=== PATIENT | female | born 1970 | race American Indian/Alaskan Native ===

== ENCOUNTER 2017-01-08 18:45 | Emergency (ER) | payer MEDICARE ==
[2017-01-08 18:56] VITALS: BP 187/106
[2017-01-08 19:17] LABS: Hematocrit 37.2 % (30.3-42.9); Hemoglobin 11.4 gm/dl (10.1-14.3); Mean Corpuscular HGB Conc 31 % (30-34); Mean Corpuscular Volume 83 fl (79-97); Platelet Count 143 K/mm3 (140-440); Red Blood Count 4.49 M/mm3 (3.65-5.03); White Blood Count 9.5 K/mm3 (4.5-11.0)
[2017-01-08 19:18] LABS: Mean Corpuscular Hemoglobin 25 pg (28-32); Red Cell Distribution Width 31.5 % (13.2-15.2)
[2017-01-08 19:32] LABS: INR 0.89 (0.87-1.13)
[2017-01-08 19:33] LABS: Anion Gap 17 mmol/L; Blood Urea Nitrogen 14 mg/dL (7-17); Calcium 8.9 mg/dL (8.4-10.2); Carbon Dioxide 24 mmol/L (22-30); Glucose 126 mg/dL (65-100); Partial Thromboplastin Time 33.7 Sec. (24.2-36.6); Sodium 137 mmol/L (137-145)
--- NOTE | 2017-01-11 19:13 | ED Elopement Review ---
ED Pt Elopement review - Results review Lab results: Laboratory Tests 01/08/17 01/08/17 01/08/17 18:58 18:58 18:58 WBC 9.5 RBC 4.49 Hgb 11.4 Hct 37.2 MCV 83 MCH 25 L MCHC 31 RDW 31.5 H Plt Count 143 PT 11.9 L INR 0.89 APTT 33.7 Sodium 137 Potassium 4.0 Chloride 100.0 Carbon Dioxide 24 Anion Gap 17 BUN 14 Creatinine 0.8 Estimated GFR > 60 BUN/Creatinine Ratio 17.50 Glucose 126 H Calcium 8.9 - Call Back decision Pt Call Back Decision: Pt to F/U with PMD
== END 2017-01-09 00:20 | disposition left against medical advice (07) ==
LOC: ED 18:45
DX: Z45.2 Encounter for adjustment and management of vascular access device (principal); E11.9 Type 2 diabetes mellitus without complications; F32.9 Major depressive disorder, single episode, unspecified; D64.9 Anemia, unspecified; Z87.891 Personal history of nicotine dependence; Z88.0 Allergy status to penicillin; Z53.21 Procedure and treatment not carried out due to patient leaving prior to being seen by health care provider
CPT/HCPCS: 36415; 80048; 85027; 85610; 85730

== ENCOUNTER 2018-04-19 12:14 | Inpatient (IN) | payer MEDICARE ==
[2018-04-19] MEDS ORDERED: ASPIRIN PO ONE (12:36)
[2018-04-19] MEDS ORDERED: NORMODYNE IV ONE ×2 (13:12→15:09)
[2018-04-19 13:13] LABS: Basophils % (Auto) 0.4 % (0.0-1.8); Eosinophils # (Auto) 0.1 K/mm3 (0.0-0.4); Eosinophils % (Auto) 0.9 % (0.0-4.3); Hematocrit 41.2 % (30.3-42.9); Lymphocytes # (Auto) 1.4 K/mm3 (1.2-5.4); Lymphocytes % (Auto) 19.1 % (13.4-35.0); Mean Corpuscular HGB Conc 34 % (30-34); Mean Corpuscular Hemoglobin 31 pg (28-32); Mean Corpuscular Volume 91 fl (79-97); Monocytes # (Auto) 0.6 K/mm3 (0.0-0.8); Monocytes % (Auto) 7.6 % (0.0-7.3); Platelet Count 124 K/mm3 (140-440); Red Blood Count 4.54 M/mm3 (3.65-5.03); Red Cell Distribution Width 15.4 % (13.2-15.2)
--- NOTE | 2018-04-19 13:20 | Emergency Department Report ---
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 She went in to see her type cutter this morning secondary to some skin color changes to her feet and legs and was found to have a blood pressure of 220/112. The patient does have a history of hypertension and is on blood pressure medications but admits to noncompliance. She also has a history of insulin- dependent diabetes, anemia. She says that her blood sugar has been running high in the 200s or 300s. She is a smoker but denies any illicit drug use. The chest pain is a intermittent sharp pain that radiates down the arm causing some air seizures in the hand. She did not take anything for her symptoms prior to presentation. She says that she has never had a stress test before. No recent travel or sick contacts at home. She denies any fever, nausea, vomiting, edema but does have some occasional diaphoresis. - Related Data Home Medications Medication Instructions Recorded Confirmed Last Taken Lisinopril [Zestril] 40 mg PO DAILY 11/07/13 12/22/16 11/20/13 glipiZIDE [glipiZIDE XL] 10 mg PO BID 11/07/13 12/22/16 11/20/13 Hydrochlorothiazide [HCTZ] 25 mg PO QDAY 11/22/13 12/22/16 11/20/13 Spironolactone [Aldactone] 50 mg PO DAILY 11/22/13 12/22/16 11/21/13 Insulin NPH Hum/Reg Insulin Hm 16 units SUB-Q DAILY 03/27/16 12/22/16 Unknown [HumuLIN 70-30 Vial] Previous Rx's Medication Instructions Recorded Last Taken Type Detemir (Nf) [Levemir (Nf)] 16 units SUB-Q QHS #30 units 12/27/16 Unknown Rx Ferrous Sulfate [Feosol 325 MG tab] 325 mg PO BID #60 tablet 12/27/16 Unknown Rx Levofloxacin [Levaquin TAB] 750 mg PO Q24HR #10 tablet 12/27/16 Unknown Rx Metoprolol [Lopressor TAB] 100 mg PO BID #60 tablet 12/27/16 Unknown Rx Pantoprazole [Protonix TAB] 40 mg PO DAILY #30 tablet 12/27/16 Unknown Rx Pregabalin [Lyrica] 75 mg PO BID #60 capsule 12/27/16 Unknown Rx amLODIPine [Norvasc] 5 mg PO QDAY #30 tablet 12/27/16 Unknown Rx cloNIDine [Catapres] 0.1 mg PO TID #60 tablet 12/27/16 Unknown Rx Allergies Allergy/AdvReac Type Severity Reaction Status Date / Time No Known Allergies Allergy Verified 04/19/18 13:56 Heart Score - HEART Score History: Moderately suspicious EKG: Non-specific Age: 45-65 Risk factors: > 3 risk factors or hx of atherosclerotic disease Troponin: < normal limit HEART Score: 5 - Critical Actions Critical Actions: 4-6 pts:12-16.6% risk of adverse cardiac event. Should be admitted ED Review of Systems ROS: Stated complaint: HBP Other details as noted in HPI Comment: All other systems reviewed and negative Constitutional: diaphoresis. denies: chills, fever Eyes: denies: eye pain, eye discharge, vision change ENT: denies: ear pain, throat pain Respiratory: denies: cough, shortness of breath, wheezing Cardiovascular: chest pain Gastrointestinal: denies: abdominal pain, nausea, diarrhea Genitourinary: denies: urgency, dysuria, discharge Musculoskeletal: myalgia. denies: back pain Skin: denies: lesions, pruritus Neurological: denies: headache, weakness, paresthesias ED Past Medical Hx - Past Medical History Previous Medical History?: Yes Hx Hypertension: Yes (noncomplient with meds) Hx Congestive Heart Failure: No Hx Diabetes: Yes Hx Deep Vein Thrombosis: No Hx Psychiatric Treatment: Yes (depression, axiety) Hx Asthma: No Hx COPD: No Hx HIV: No Additional medical history: Iron deficiency anemia, osteomyelitis left foot - Surgical History Hx Pacemaker: No Hx Internal Defibrillator: No Additional Surgical History: , left foot surgery - Social History Smoking Status: Current Every Day Smoker Substance Use Type: None - Medications Home Medications: Home Medications Medication Instructions Recorded Confirmed Last Taken Type Lisinopril [Zestril] 40 mg PO DAILY 11/07/13 12/22/16 11/20/13 History glipiZIDE [glipiZIDE XL] 10 mg PO BID 11/07/13 12/22/16 11/20/13 History Hydrochlorothiazide [HCTZ] 25 mg PO QDAY 11/22/13 12/22/16 11/20/13 History Spironolactone [Aldactone] 50 mg PO DAILY 11/22/13 12/22/16 11/21/13 History Insulin NPH Hum/Reg Insulin Hm 16 units SUB-Q DAILY 03/27/16 12/22/16 Unknown History [HumuLIN 70-30 Vial] Detemir (Nf) [Levemir (Nf)] 16 units SUB-Q QHS #30 units 12/27/16 Unknown Rx Ferrous Sulfate [Feosol 325 MG tab] 325 mg PO BID #60 tablet 12/27/16 Unknown Rx Levofloxacin [Levaquin TAB] 750 mg PO Q24HR #10 tablet 12/27/16 Unknown Rx Metoprolol [Lopressor TAB] 100 mg PO BID #60 tablet 12/27/16 Unknown Rx Pantoprazole [Protonix TAB] 40 mg PO DAILY #30 tablet 12/27/16 Unknown Rx Pregabalin [Lyrica] 75 mg PO BID #60 capsule 12/27/16 Unknown Rx amLODIPine [Norvasc] 5 mg PO QDAY #30 tablet 12/27/16 Unknown Rx cloNIDine [Catapres] 0.1 mg PO TID #60 tablet 12/27/16 Unknown Rx ED Physical Exam - General Limitations: No Limitations - Other Other exam information: GENERAL: The patient is well-developed well-nourished. HENT: Normocephalic. Atraumatic. Patient has moist mucous membranes. EYES: Extraocular motions are intact. Pupils equal reactive to light bilaterally. NECK: Supple. Trachea is midline. CHEST/LUNGS: Clear to auscultation. There is no respiratory distress noted. HEART/CARDIOVASCULAR: Regular. There is no tachycardia. There is no murmur. ABDOMEN: Abdomen is soft, nontender. Patient has normal bowel sounds. There is no abdominal distention. SKIN: Skin is warm and dry. NEURO: The patient is awake, alert, and oriented. The patient is cooperative. The patient has no focal neurologic deficits. The patient has normal speech. MUSCULOSKELETAL: There is no tenderness or deformity. There is no limitation range of motion. There is no evidence of acute injury. ED Course Vital Signs 04/19/18 04/19/18 04/19/18 12:25 12:28 12:30 Temperature 98.4 F Pulse Rate 85 84 95 H Respiratory 16 16 17 Rate Blood Pressure 208/124 208/124 Blood Pressure [Right] O2 Sat by Pulse 99 99 Oximetry 04/19/18 04/19/18 04/19/18 13:39 13:45 13:51 Temperature Pulse Rate 90 85 85 Respiratory 20 12 Rate Blood Pressure 208/130 213/130 208/124 Blood Pressure [Right] O2 Sat by Pulse 100 Oximetry 04/19/18 04/19/18 04/19/18 14:00 14:16 14:20 Temperature Pulse Rate 85 89 88 Respiratory 14 13 Rate Blood Pressure 201/124 224/120 224/120 Blood Pressure [Right] O2 Sat by Pulse 100 99 Oximetry 04/19/18 04/19/18 04/19/18 14:30 14:46 15:00 Temperature Pulse Rate 93 H 96 H 93 H Respiratory 18 17 17 Rate Blood Pressure 224/120 224/120 205/100 Blood Pressure [Right] O2 Sat by Pulse 100 99 99 Oximetry 04/19/18 04/19/18 04/19/18 15:07 15:17 15:45 Temperature Pulse Rate 93 H 92 H Respiratory Rate Blood Pressure 205/100 205/100 Blood Pressure 205/100 [Right] O2 Sat by Pulse 100 Oximetry 04/19/18 04/19/18 04/19/18 16:00 16:16 16:30 Temperature Pulse Rate 97 H 97 H 97 H Respiratory 16 9 L 11 L Rate Blood Pressure 188/100 205/100 205/100 Blood Pressure [Right] O2 Sat by Pulse 98 98 99 Oximetry 04/19/18 04/19/18 04/19/18 16:46 17:00 17:16 Temperature Pulse Rate 98 H 96 H 96 H Respiratory 18 17 13 Rate Blood Pressure 205/100 166/93 166/93 Blood Pressure [Right] O2 Sat by Pulse 98 97 97 Oximetry 04/19/18 04/19/18 17:31 17:45 Temperature Pulse Rate 98 H 98 H Respiratory 18 16 Rate Blood Pressure 166/93 Blood Pressure [Right] O2 Sat by Pulse 99 99 Oximetry BUCK score - Buck Score Age > 65: (0) No Aspirin use within the Past 7 Days: (0) No 3 or more CAD Risk Factors: (0) No 2 or more Angina events in past 24 hrs: (1) Yes Known CAD with more than 50% Stenosis: (0) No Elevated Cardiac Markers: (0) No ST Deviation Greater than 0.5mm: (0) No BUCK Score: 1 ED Medical Decision Making - Lab Data Result diagrams: 04/19/18 12:49 04/19/18 12:49 - EKG Data -: EKG Interpreted by Me EKG shows normal: sinus rhythm, axis (left axis deviation), intervals, QRS complexes (LVH), ST-T waves Rate: normal - EKG Data When compared to previous EKG there are: previous EKG unavailable Interpretation: LVH - Radiology Data Radiology results: report reviewed, image reviewed interpreted by me: Chest x-ray does not show any acute process. There are no pleural effusions, obvious pneumonia and there is no pneumothorax. EXAM: CT ANGIO CHEST HISTORY: CP, elevated dimer TECHNIQUE: CT chest CT angiogram with reconstructions PRIORS: None. FINDINGS: There is no evidence of filling defect within the central pulmonary vasculature to suggest the presence of acute pulmonary embolus. No evidence of mediastinal pathologic lymph node enlargement Heart and great vessels are unremarkable. The aorta is normal in caliber. No focal pulmonary infiltrate identified. No pleural fluid collection seen. No acute pulmonary abnormality noted. Visualized portion of the upper abdomen demonstrates no acute change. IMPRESSION: Negative. No CT evidence of acute pulmonary embolus Transcribed By: KYM Dictated By: SAMY UPTON MD Electronically Authenticated By: SAMY UPTON MD Signed Date/Time: 04/19/18 4979 - Medical Decision Making This patient presents with very elevated blood pressure and a 4 day history of some chest pain. Patient is been noncompliant with her blood pressure medications and presents with a blood pressure of about 220 systolic. Labs within mostly unremarkable including negative troponins 2 thus far but she did have a slightly elevated and equivocal d-dimer. CT angiography of the chest was done that does not show any signs of dissection or pulmonary embolus. Blood pressure came down to a more reasonable level with multiple antihypertensive medications. Patient will be admitted to the hospital for further evaluation and treatment was subsequently by the hospitalist, Dr Light. - Differential Diagnosis [place], PE, Pneumonia, CHF, Dissection Critical Care Time: No Critical care attestation.: If time is entered above; I have spent that time in minutes in the direct care of this critically ill patient, excluding procedure time. ED Disposition Clinical Impression: Hypertensive urgency, Acute chest pain, Medical non-compliance, Tobacco abuse disorder Disposition: OP ADMIT IP TO THIS HOSP Is pt being admited?: Yes Condition: Fair Instructions: Chest Pain (ED) Time of Disposition: 18:29
[2018-04-19 13:31] LABS: BUN/Creatinine Ratio 18; Blood Urea Nitrogen 14 mg/dL (7-17); Calcium 9.2 mg/dL (8.4-10.2); Hemolysis Index 1
--- NOTE | 2018-04-19 14:14 | XRay Report ---
AP CHEST : 04/19/18 12:14:00 CLINICAL: Chest pain. COMPARISON:01/01/17 FINDINGS: Normal heart and pulmonary vessels. The lungs are normally expanded and clear. The bones and soft tissues are unremarkable. IMPRESSION: Normal chest.
[2018-04-19] MEDS ORDERED: MORPHINE IV ONE (14:17)
[2018-04-19] MEDS ORDERED: ZOFRAN IV ONE (14:17)
[2018-04-19] MEDS ORDERED: APRESOLINE IV ONE (14:17)
--- NOTE | 2018-04-19 17:04 | Cat Scan Report ---
FINAL REPORT EXAM: CT ANGIO CHEST HISTORY: CP, elevated dimer TECHNIQUE: CT chest CT angiogram with reconstructions PRIORS: None. FINDINGS: There is no evidence of filling defect within the central pulmonary vasculature to suggest the presence of acute pulmonary embolus. No evidence of mediastinal pathologic lymph node enlargement Heart and great vessels are unremarkable. The aorta is normal in caliber. No focal pulmonary infiltrate identified. No pleural fluid collection seen. No acute pulmonary abnormality noted. Visualized portion of the upper abdomen demonstrates no acute change. IMPRESSION: Negative. No CT evidence of acute pulmonary embolus
--- NOTE | 2018-04-19 17:39 | History and Physical Report ---
History of Present Illness Chief complaint: My chest hurts History of present illness: 47 YO Female with DM, HTN, Depression, Anxiety, Nicotine Dependence, Medication Noncompliance presents to ED for evaluation. Pt states that she has experienced pain in her chest over the past 4 days with worsening symptoms over the past 1 day. Pain is 6/10, intermittent, sharp, radiates to the left arm, not worsened with exertion, not relieved with rest. Pt states that she was seen by her doctor and was found to have a blood pressure of 220/120. Pt instructed to seek further care at [facility]. Pt seen and evaluated in ED and found to have symptoms consistent with ACS as well as CHF. Pt admitted to telemetry. Pt denies fever, chills, palpitations, NVD, Syncope, prolonged travel/immobility, unilateral leg swelling, calf pain, productive cough, or recent ill contacts. Cardiology consulted in ED. Past History Past Medical History: hypertension, other (depression,anxiety) Past Surgical History: , Other (left Foot surgery) Social history: single, smoking. denies: alcohol abuse, prescription drug abuse Family history: diabetes, hypertension Medications and Allergies Allergies Allergy/AdvReac Type Severity Reaction Status Date / Time No Known Allergies Allergy Verified 04/19/18 13:56 Home Medications Medication Instructions Recorded Confirmed Last Taken Type Lisinopril [Zestril] 40 mg PO DAILY 11/07/13 12/22/16 11/20/13 History glipiZIDE [glipiZIDE XL] 10 mg PO BID 11/07/13 12/22/16 11/20/13 History Hydrochlorothiazide [HCTZ] 25 mg PO QDAY 11/22/13 12/22/16 11/20/13 History Spironolactone [Aldactone] 50 mg PO DAILY 11/22/13 12/22/16 11/21/13 History Insulin NPH Hum/Reg Insulin Hm 16 units SUB-Q DAILY 03/27/16 12/22/16 Unknown History [HumuLIN 70-30 Vial] Detemir (Nf) [Levemir (Nf)] 16 units SUB-Q QHS #30 units 12/27/16 Unknown Rx Ferrous Sulfate [Feosol 325 MG tab] 325 mg PO BID #60 tablet 12/27/16 Unknown Rx Levofloxacin [Levaquin TAB] 750 mg PO Q24HR #10 tablet 12/27/16 Unknown Rx Metoprolol [Lopressor TAB] 100 mg PO BID #60 tablet 12/27/16 Unknown Rx Pantoprazole [Protonix TAB] 40 mg PO DAILY #30 tablet 12/27/16 Unknown Rx Pregabalin [Lyrica] 75 mg PO BID #60 capsule 12/27/16 Unknown Rx amLODIPine [Norvasc] 5 mg PO QDAY #30 tablet 12/27/16 Unknown Rx cloNIDine [Catapres] 0.1 mg PO TID #60 tablet 12/27/16 Unknown Rx Review of Systems Constitutional: no weight loss, no weight gain, no fever, no chills Ears, nose, mouth and throat: no ear pain, no ear discharge, no tinnitis, no decreased hearing, no nose pain, no nasal congestion Breasts: no change in shape, no swelling, no mass Cardiovascular: chest pain, no orthopnea, no palpitations, no syncope, no lightheadedness Respiratory: no cough, no cough with sputum, no excessive sputum Gastrointestinal: no abdominal pain, no nausea, no vomiting, no diarrhea, no constipation Genitourinary Female: no pelvic pain, no flank pain, no menorrhagia, no dysuria , no urinary frequency, no urgency, no stress incontinence Rectal: no pain, no incontinence, no bleeding Integumentary: no rash, no pruritis, no redness, no sores, no wounds, no jaundice Neurological: no transient paralysis, no paralysis, no weakness, no parathesias , no numbness, no tingling Psychiatric: no anxiety, no memory loss, no change in sleep habits, no sleep disturbances, no insomnia, no hypersomnia Endocrine: no cold intolerance, no heat intolerance, no excessive thirst, no polydipsia, no polyuria, no nocturia Hematologic/Lymphatic: no easy bruising, no easy bleeding, no lymphadenopathy, no lymphedema Allergic/Immunologic: no urticaria, no allergic rhinitis, no wheezing, no persistent infections, no anaphylaxis Exam - Constitutional Vitals: Temp Pulse Resp BP Pulse Ox 98.4 F 96 H 17 166/93 97 04/19/18 12:25 04/19/18 17:00 04/19/18 17:00 04/19/18 17:00 04/19/18 17:00 General appearance: Present: mild distress, cachectic - EENT Eyes: Present: PERRL ENT: hearing intact, clear oral mucosa - Neck Neck: Present: supple, normal ROM - Respiratory Respiratory effort: normal Respiratory: bilateral: CTA - Cardiovascular Heart Sounds: Present: S1 & S2. Absent: rub, click - Extremities Extremities: pulses symmetrical, No edema Peripheral Pulses: within normal limits - Abdominal General gastrointestinal: Present: soft, non-tender, non-distended, normal bowel sounds Female genitourinary: Present: normal - Integumentary Integumentary: Present: clear, warm, dry - Musculoskeletal Musculoskeletal: gait normal, strength equal bilaterally - Psychiatric Psychiatric: appropriate mood/affect, intact judgment & insight - Neurologic Neurologic: CNII-XII intact, moves all extremities Results - Labs CBC & Chem 7: 04/19/18 12:49 04/19/18 12:49 Labs: Abnormal lab results 04/19/18 04/19/18 04/19/18 Range/Units 12:49 12:49 13:20 RDW 15.4 H (13.2-15.2) % Plt Count 124 L (140-440) K/mm3 [place] % (Auto) 7.6 H (0.0-7.3) % Seg Neutrophils % 72.0 H (40.0-70.0) % D-Dimer 568.39 H (0-234) ng/mlDDU Glucose 261 H (65-100) mg/dL Assessment and Plan - Patient Problems (1) ACS (acute coronary syndrome) Current Visit: Yes Status: Acute Plan to address problem: Admit to telemetry, serial cardiac enzymes, stress test, d dimer, morphine, supplemental oxygen, nitro, aspirin, cardiology consulted in ED (2) CHF (congestive heart failure) Current Visit: Yes Status: Acute Qualifiers: Heart failure type: diastolic Heart failure chronicity: acute Qualified Code(s): I50.31 - Acute diastolic (congestive) heart failure Plan to address problem: Admit to telemetry, echo, strict I/O, monitor uop q shift, Cardiology consulted in ED, BNP, Chest x ray, d dimer, daily weight, (3) Severe malnutrition Current Visit: Yes Status: Acute Plan to address problem: Encourage increased protein intake. (4) Hypertensive urgency, malignant Current Visit: Yes Status: Acute Plan to address problem: monitor bp q shift, continue medical management,IV hydralazine prn, (5) Diabetes mellitus Current Visit: No Status: Acute Plan to address problem: ADA diet, insulin, accu check (6) DVT prophylaxis Current Visit: No Status: Acute Plan to address problem: SCD to BLE while in bed.
[2018-04-19] MEDS ORDERED: NITROSTAT SL PRN (17:41)
[2018-04-19] MEDS ORDERED: MORPHINE IV PRN (17:41)
[2018-04-19] MEDS ORDERED: PROVENTIL IH PRN (17:41)
[2018-04-19] MEDS ORDERED: SODIUM CHLORIDE FLUSH SYRINGE 10 ML IV PRN ×2 (17:41)
[2018-04-19] MEDS ORDERED: TYLENOL PO PRN (17:41)
[2018-04-19] MEDS ORDERED: ZOFRAN IV PRN (17:41)
[2018-04-19] MEDS ORDERED: APRESOLINE IV PRN (17:46)
[2018-04-19] MEDS ORDERED: BABY ASPIRIN PO STA (17:49)
[2018-04-19 19:02] LABS: Chol/HDL Ratio 3.61 %
[2018-04-19] MEDS: FEOSOL PO SCH ×2 (20:44→21:25)
[2018-04-19] MEDS: LOPRESSOR PO SCH ×2 (20:44→21:25)
[2018-04-19] MEDS: LYRICA PO SCH ×2 (20:45→21:25)
[2018-04-19] MEDS: CATAPRES PO SCH (20:45)
[2018-04-19] MEDS: SODIUM CHLORIDE FLUSH SYRINGE 10 ML IV SCH ×2 (20:46→21:25)
[2018-04-19] MEDS ORDERED: INSULIN DETEMIR 16 UNIT SUB-Q SCH (22:00)
[2018-04-19] MEDS ORDERED: PEPCID PO SCH (22:00)
[2018-04-19] MEDS: LANTUS SUB-Q SCH (22:59)
[2018-04-20] MEDS ORDERED: APRESOLINE IV PRN (04:47)
[2018-04-20] MEDS ORDERED: APRESOLINE IV SCH (06:00)
[2018-04-20] MEDS: CATAPRES PO SCH (08:00)
[2018-04-20] MEDS ORDERED: LEXISCAN IV ONE ×2 (08:17→08:35)
[2018-04-20] MEDS: FEOSOL PO SCH ×2 (09:51→22:20)
[2018-04-20] MEDS: ALDACTONE PO SCH (09:51)
[2018-04-20] MEDS: LOPRESSOR PO SCH ×2 (09:52→22:20)
[2018-04-20] MEDS: SODIUM CHLORIDE FLUSH SYRINGE 10 ML IV SCH ×2 (09:52→22:22)
[2018-04-20] MEDS: LYRICA PO SCH ×2 (09:52→22:20)
[2018-04-20] MEDS: PROTONIX PO SCH (09:52)
[2018-04-20] MEDS: ZESTRIL PO SCH (09:52)
[2018-04-20] MEDS ORDERED: HCTZ PO SCH (10:00)
[2018-04-20] MEDS ORDERED: NORVASC PO SCH (10:00)
--- NOTE | 2018-04-20 10:36 | Consultation ---
History of Present Illness Consult date: 04/20/18 Requesting physician: MARTÍN VICKERS Consult reason: chest pain History of present illness: Patient is a 47 YO Female who presented to the hospital with chest pain. She has history of DM, HTN, Depression, Anxiety, Nicotine Dependence. She has been very noncompliant with her medications.patient presented with atypical chest pain all over her chest but no particular aggravating or relieving factorsor shortness of breath or diaphoresis. Pt states that she was seen by her primary care doctor and was found to have a blood pressure of 220/120. Pt instructed to seek further care at [facility]. She has since done well with no chest pain and improvement in her blood pressure. Pt admitted to telemetry. Pt denies fever, chills, palpitations, NVD, Syncope, prolonged travel/immobility, unilateral leg swelling, calf pain, productive cough, or recent ill contacts. Past History Past Medical History: hypertension, other (depression,anxiety) Past Surgical History: , Other (left Foot surgery) Social history: single, smoking. denies: alcohol abuse, prescription drug abuse Family history: diabetes, hypertension Medications and Allergies Allergies Allergy/AdvReac Type Severity Reaction Status Date / Time No Known Allergies Allergy Verified 04/19/18 13:56 Home Medications Medication Instructions Recorded Confirmed Last Taken Type Lisinopril [Zestril] 40 mg PO DAILY 11/07/13 12/22/16 11/20/13 History glipiZIDE [glipiZIDE XL] 10 mg PO BID 11/07/13 12/22/16 11/20/13 History Hydrochlorothiazide [HCTZ] 25 mg PO QDAY 11/22/13 12/22/16 11/20/13 History Spironolactone [Aldactone] 50 mg PO DAILY 11/22/13 12/22/16 11/21/13 History Insulin NPH Hum/Reg Insulin Hm 16 units SUB-Q DAILY 03/27/16 12/22/16 Unknown History [HumuLIN 70-30 Vial] Detemir (Nf) [Levemir (Nf)] 16 units SUB-Q QHS #30 units 12/27/16 Unknown Rx Ferrous Sulfate [Feosol 325 MG tab] 325 mg PO BID #60 tablet 12/27/16 Unknown Rx Levofloxacin [Levaquin TAB] 750 mg PO Q24HR #10 tablet 12/27/16 Unknown Rx Metoprolol [Lopressor TAB] 100 mg PO BID #60 tablet 12/27/16 Unknown Rx Pantoprazole [Protonix TAB] 40 mg PO DAILY #30 tablet 12/27/16 Unknown Rx Pregabalin [Lyrica] 75 mg PO BID #60 capsule 12/27/16 Unknown Rx amLODIPine [Norvasc] 5 mg PO QDAY #30 tablet 12/27/16 Unknown Rx cloNIDine [Catapres] 0.1 mg PO TID #60 tablet 12/27/16 Unknown Rx Active Meds: Active Medications Acetaminophen (Tylenol) 650 mg PO Q4H PRN PRN Reason: Pain MILD(1-3)/Fever >100.5/STALEY Albuterol (Proventil) 2.5 mg IH Q4HRT PRN PRN Reason: Shortness Of Breath Amlodipine Besylate (Norvasc) 5 mg PO QDAY [facility] Last Admin: 04/20/18 09:52 Dose: Not Given Ferrous Sulfate (Feosol) 325 mg PO BID [facility] Last Admin: 04/20/18 09:51 Dose: Not Given Hydralazine HCl (Apresoline) 20 mg IV Q4HR PRN PRN Reason: Blood Pressure Last Admin: 04/20/18 04:54 Dose: 20 mg Hydrochlorothiazide (Hctz) 25 mg PO QDAY [facility] Last Admin: 04/20/18 09:51 Dose: Not Given Insulin Glargine (Lantus) 16 units SUB-Q QHS [facility] Last Admin: 04/19/18 22:59 Dose: 16 units Insulin Human Isoph/Insulin Regular (Humulin 70/30) 16 unit SUB-Q DAILY [facility] Last Admin: 04/20/18 09:51 Dose: Not Given Lisinopril (Zestril) 40 mg PO DAILY [facility] Last Admin: 04/20/18 09:52 Dose: Not Given Metoprolol Tartrate (Lopressor) 100 mg PO BID [facility] Last Admin: 04/20/18 09:52 Dose: Not Given Morphine Sulfate (Morphine) 2 mg IV Q4H PRN PRN Reason: Pain, Moderate (4-6) Last Admin: 04/20/18 04:52 Dose: 2 mg Nitroglycerin (Nitrostat) 0.4 mg SL Q5M PRN PRN Reason: Chest Pain Ondansetron HCl (Zofran) 4 mg IV Q8H PRN PRN Reason: Nausea And Vomiting Last Admin: 04/20/18 04:53 Dose: 4 mg Pantoprazole Sodium (Protonix) 40 mg PO DAILY [facility] Last Admin: 04/20/18 09:52 Dose: Not Given Pregabalin (Lyrica) 75 mg PO BID [facility] Last Admin: 04/20/18 09:52 Dose: Not Given Sodium Chloride (Sodium Chloride Flush Syringe 10 Ml) 10 ml IV BID [facility] Last Admin: 04/20/18 09:52 Dose: Not Given Sodium Chloride (Sodium Chloride Flush Syringe 10 Ml) 10 ml IV PRN PRN PRN Reason: LINE FLUSH Spironolactone (Aldactone) 50 mg PO DAILY [facility] Last Admin: 04/20/18 09:51 Dose: Not Given Review of Systems All systems: negative (as mentioned in the H&P) Physical Examination Vital Signs Temp Pulse Resp BP Pulse Ox 98.4 F 85 16 208/124 99 04/19/18 12:25 04/19/18 12:25 04/19/18 12:25 04/19/18 12:25 04/19/18 12:25 Narrative exam: Physical examination Vitals reviewed GEN: No acute distress noted HEENT: Carotids 2+ NECK: Supple CVS: S1 and S2 heard no significant murmur or gallop noted LUNGS/CHEST: Normal auscultation ABD: Soft nontender Extremities: No edema noted normal color NEURO: Alert moves all all 4 extremities PSY: Stable Results 04/19/18 12:49 04/19/18 12:49 Lipids 04/19/18 Range/Units 18:18 Triglycerides 151 H (2-149) mg/dL Cholesterol 177 (50-199) mg/dL HDL Cholesterol 49 (40-59) mg/dL Cholesterol/HDL Ratio 3.61 % CBC 04/19/18 Range/Units 12:49 WBC 7.3 (4.5-11.0) K/mm3 RBC 4.54 (3.65-5.03) M/mm3 Hgb 14.0 (10.1-14.3) gm/dl Hct 41.2 (30.3-42.9) % Plt Count 124 L (140-440) K/mm3 Lymph # 1.4 (1.2-5.4) K/mm3 [place] # 0.6 (0.0-0.8) K/mm3 Eos # 0.1 (0.0-0.4) K/mm3 Baso # 0.0 (0.0-0.1) K/mm3 Comprehensive Metabolic Panel 04/19/18 Range/Units 12:49 Sodium 139 (137-145) mmol/L Potassium 3.9 (3.6-5.0) mmol/L Chloride 101.3 (98-107) mmol/L Carbon Dioxide 27 (22-30) mmol/L BUN 14 (7-17) mg/dL Creatinine 0.8 (0.7-1.2) mg/dL Glucose 261 H (65-100) mg/dL Calcium 9.2 (8.4-10.2) mg/dL EKG interpretations - Telemetry EKG Rhythm: Sinus Rhythm (inferolateral ST changes likely suggestive of LVH) Assessment and Plan 1. Chest pain atypical likely related to uncontrolled hypertension 2. Uncontrolled hypertension improving 3. Noncompliance 4. Elevated d-dimer with negative CT of the chest 5. Tobacco abuse Plan 1. Agree with stress test 2. DC clonidine to improve compliance. Increase amlodipine. Change hydrochlorothiazide to chlorthalidone. 3. 2-D echo 4. The thank you for involving us in the care of this patient
--- NOTE | 2018-04-20 13:11 | Treadmill Report ---
NUCLEAR PERFUSION REPORT REQUESTING PHYSICIAN: Dr. Freeman Light. FINDINGS: 1. Homogeneous uptake of tracer noted in the rest and stress images. 2. Comparison of the rest and stress images revealed no fixed or reversible defect suggestive of ischemia or infarct. Gated analysis reveals normal wall motion. LVEF is 56%. IMPRESSION: Normal myocardial perfusion scan. JOB# [id number] RR/NTS
[2018-04-20] MEDS: NORVASC PO SCH (13:29)
[2018-04-20] MEDS: THALITONE PO SCH (14:45)
--- NOTE | 2018-04-20 15:30 | Progress Note ---
Assessment and Plan - ACS (acute coronary syndrome) serial cardiac enzymes x 2 wer neagtive, For stress test, Continue with morphine, supplemental oxygen, nitro, aspirin, - CHF (congestive heart failure) Acute diastolic (congestive) heart failure Obtian echo, strict I/O, monitor uop q shift, BNP - pending, Chest x ray - nl daily weight, - Severe malnutrition Encourage increased protein intake. - Hypertensive urgency, malignant monitor bp q shift, continue medical management, IV hydralazine prn, - Diabetes mellitus A1c 11% ADA diet, insulin, accu check - DVT prophylaxis SCD to BLE while in bed. Subjective Date of service: 04/20/18 Principal diagnosis: Chest pain Interval history: pt seen and exmained. No more chest pain. Objective - Constitutional Vitals: Vital Signs - 12hr 04/20/18 04/20/18 04/20/18 03:35 04:54 05:27 Temperature 98.6 F Pulse Rate 90 94 H Respiratory 18 Rate Blood Pressure 188/111 Blood Pressure 188/111 [Right] O2 Sat by Pulse 97 Oximetry 04/20/18 04/20/18 04/20/18 06:07 06:24 08:07 Temperature Pulse Rate 94 H 91 H Respiratory Rate Blood Pressure 168/94 Blood Pressure 157/86 [Right] O2 Sat by Pulse 99 Oximetry 04/20/18 04/20/18 04/20/18 08:23 08:24 08:25 Temperature Pulse Rate 107 H 89 114 H Respiratory Rate Blood Pressure 135/73 128/78 142/78 Blood Pressure [Right] O2 Sat by Pulse Oximetry 04/20/18 04/20/18 04/20/18 08:26 08:27 13:29 Temperature Pulse Rate 95 H 118 H Respiratory Rate Blood Pressure 137/94 173/99 158/97 Blood Pressure [Right] O2 Sat by Pulse Oximetry 04/20/18 15:11 Temperature Pulse Rate Respiratory Rate Blood Pressure Blood Pressure [Right] O2 Sat by Pulse 100 Oximetry General appearance: Present: no acute distress, well-nourished - EENT Eyes: PERRL, EOM intact ENT: hearing intact, clear oral mucosa Ears: bilateral: normal - Neck Neck: supple, normal ROM - Respiratory Respiratory effort: normal Respiratory: bilateral: CTA - Breasts Breasts: deferred - Cardiovascular Rhythm: regular Heart Sounds: Present: S1 & S2. Absent: gallop, rub Extremities: pulses intact, No edema, normal color, Full ROM - Gastrointestinal General gastrointestinal: Present: soft, non-tender, non-distended, normal bowel sounds - Genitourinary Female genitourinary: deferred - Integumentary Integumentary: clear, warm, dry - Musculoskeletal Musculoskeletal: 1, strength equal bilaterally - Neurologic Neurologic: moves all extremities - Psychiatric Psychiatric: memory intact, appropriate mood/affect, intact judgment & insight - Labs CBC & Chem 7: 04/19/18 12:49 04/19/18 12:49 Labs: Abnormal lab results 04/19/18 04/19/18 04/19/18 Range/Units 18:01 18:18 20:43 POC Glucose 424 H (70-105) Hemoglobin A1c 11.7 H (4-6) % Triglycerides 151 H (2-149) mg/dL 04/20/18 Range/Units 13:20 POC Glucose 275 H (70-105) Hemoglobin A1c (4-6) % Triglycerides (2-149) mg/dL
[2018-04-20] MEDS: HumaLOG SUB-Q SCH ×2 (18:06→22:22)
[2018-04-20] MEDS: LANTUS SUB-Q SCH (22:20)
[2018-04-21 08:59] LABS: Basophils % (Auto) 0.4 % (0.0-1.8); Eosinophils # (Auto) 0.1 K/mm3 (0.0-0.4); Eosinophils % (Auto) 1.3 % (0.0-4.3); Hematocrit 42.4 % (30.3-42.9); Hemoglobin 14.5 gm/dl (10.1-14.3); Lymphocytes # (Auto) 1.7 K/mm3 (1.2-5.4); Lymphocytes % (Auto) 24.1 % (13.4-35.0); Mean Corpuscular HGB Conc 34 % (30-34); Mean Corpuscular Hemoglobin 31 pg (28-32); Mean Corpuscular Volume 90 fl (79-97); Monocytes # (Auto) 0.6 K/mm3 (0.0-0.8); Platelet Count 145 K/mm3 (140-440); Red Blood Count 4.69 M/mm3 (3.65-5.03); Red Cell Distribution Width 15.3 % (13.2-15.2)
[2018-04-21 09:24] LABS: Alanine Aminotransferase 11 units/L (7-56); Albumin 3.8 g/dL (3.9-5); BUN/Creatinine Ratio 19; Blood Urea Nitrogen 13 mg/dL (7-17); Calcium 9.7 mg/dL (8.4-10.2); Hemolysis Index 9
[2018-04-21] MEDS: ALDACTONE PO SCH (10:39)
[2018-04-21] MEDS: FEOSOL PO SCH (10:39)
[2018-04-21] MEDS: THALITONE PO SCH (10:40)
[2018-04-21] MEDS: ZESTRIL PO SCH (10:40)
[2018-04-21] MEDS: LYRICA PO SCH (10:40)
[2018-04-21] MEDS: LOPRESSOR PO SCH (10:40)
[2018-04-21] MEDS: NORVASC PO SCH (10:40)
[2018-04-21] MEDS: PROTONIX PO SCH (10:40)
[2018-04-21] MEDS: SODIUM CHLORIDE FLUSH SYRINGE 10 ML IV SCH (10:41)
[2018-04-21] MEDS: HumaLOG SUB-Q SCH ×2 (10:59→12:48)
[2018-04-21 11:06] VITALS: BP 172/97
--- NOTE | 2018-04-21 11:16 | Progress Note ---
Assessment and Plan 1. Chest pain atypical likely related to uncontrolled hypertension 2. Uncontrolled hypertension improving 3. Noncompliance 4. Elevated d-dimer with negative CT of the chest 5. Tobacco abuse Plan 1. Stress test negative 2. Echo EF normal moderate to severe LVH 3. Okay to [place] home with current medications and outpatient optimization of her blood pressure regiment Subjective Date of service: 04/21/18 Principal diagnosis: Chest pain Interval history: Feeling better. No further chest pain Objective Vital Signs Temp Pulse Pulse Pulse Resp BP Pulse Ox 04/21/18 07:45 98.2 F 79 16 172/97 99 04/21/18 05:47 98.3 F 80 18 151/86 97 04/21/18 00:21 98.7 F 86 20 169/98 98 04/20/18 22:40 70 70 18 96 04/20/18 22:20 69 159/72 04/20/18 21:14 18 04/20/18 20:37 99.2 F 107 H 18 170/99 98 04/20/18 20:14 18 04/20/18 19:13 107 H 04/20/18 16:23 98.0 F 70 20 146/69 96 04/20/18 16:13 98.9 F 101 H 18 190/109 98 04/20/18 15:11 100 04/20/18 13:29 158/97 04/20/18 13:06 98.6 F 103 H 18 158/97 100 - Physical Examination Narrative exam: Physical examination Vitals reviewed GEN: No acute distress noted HEENT: Carotids 2+ NECK: Supple CVS: S1 and S2 heard no significant murmur or gallop noted LUNGS/CHEST: Normal auscultation ABD: Soft nontender Extremities: No edema noted normal color NEURO: Alert moves all all 4 extremities PSY: Stable - Labs and Meds Cardiac Enzymes 04/21/18 Range/Units 08:20 AST 16 (5-40) units/L CBC 04/21/18 Range/Units 08:20 WBC 7.1 (4.5-11.0) K/mm3 RBC 4.69 (3.65-5.03) M/mm3 Hgb 14.5 H (10.1-14.3) gm/dl Hct 42.4 (30.3-42.9) % Plt Count 145 (140-440) K/mm3 Lymph # 1.7 (1.2-5.4) K/mm3 [place] # 0.6 (0.0-0.8) K/mm3 Eos # 0.1 (0.0-0.4) K/mm3 Baso # 0.0 (0.0-0.1) K/mm3 Comprehensive Metabolic Panel 04/21/18 Range/Units 08:20 Sodium 141 (137-145) mmol/L Potassium 3.9 (3.6-5.0) mmol/L Chloride 96.8 L (98-107) mmol/L Carbon Dioxide 28 (22-30) mmol/L BUN 13 (7-17) mg/dL Creatinine 0.7 (0.7-1.2) mg/dL Glucose 132 H (65-100) mg/dL Calcium 9.7 (8.4-10.2) mg/dL AST 16 (5-40) units/L ALT 11 (7-56) units/L Alkaline Phosphatase 131 H (35-129) units/L Total Protein 7.5 (6.3-8.2) g/dL Albumin 3.8 L (3.9-5) g/dL
--- NOTE | 2018-04-21 11:41 | Discharge Summary ---
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 Pain is 6/10, intermittent, sharp, radiates to the left arm, not worsened with exertion, not relieved with rest. Pt states that she was seen by her doctor and was found to have a blood pressure of 220/120. Pt instructed to seek further care at [facility]. Pt seen and evaluated in ED and found to have symptoms consistent with ACS as well as CHF. Pt admitted to telemetry. Pt denies fever, chills, palpitations, NVD, Syncope, prolonged travel/immobility, unilateral leg swelling, calf pain, productive cough, or recent ill contacts. Cardiology consulted in ED. patient also found to have very elevated blood pressure. Stress test was done. Minimal myocardial perfusion reported. Left ventricular ejection fraction was 56%. Blood pressure controlled with oral anti-hypertensives. CT of the chest was done was unremarkable for any dissection or pulmonary embolism. Counseling on tobacco cessation was done as well as alcohol cessation as patient is a current smoker. She's been discharged as symptoms has resolved, to follow up with primary care physician in 3-5 days. Disposition: - TO HOME OR SELFCARE Time spent for discharge: 35 mins - Discharge Diagnoses (1) Acute chest pain Status: Acute (2) CHF (congestive heart failure) Status: Acute Qualifiers: Heart failure type: diastolic Heart failure chronicity: acute Qualified Code(s): I50.31 - Acute diastolic (congestive) heart failure (3) Hypertensive urgency Status: Acute (4) Medical non-compliance Status: Acute Core Measure Documentation - Palliative Care Palliative Care/ Comfort Measures: Not Applicable - Core Measures Any of the following diagnoses?: none Exam - Physical Exam Narrative exam: Constitutional: Well-nourished well-developed. In no distress Head: Normocephalic atraumatic Eyes: Pupils are equal round and reactive to light Nose: No enlarged turbinates, no septal deviation. Mouth: Moist mucous membranes. Neck: Supple no thyromegaly. No bruit. No JVD Heart: Regular rate and rhythm, S1-S2 abnormal. No rubs murmurs or gallop Lungs: Clear to auscultation bilaterally no rales or rhonchi Abdomen: Soft, nontender. Bowel sound are present. Extremities: No edema no cyanosis and no clubbing. Neuro: Alert oriented Oriented x3. No focal sensory or motor deficit. Skin: No rashes no hyperemic spots Psychiatry: Euthymic. Calm. - Constitutional Vitals: Temp Pulse Resp BP Pulse Ox 98.2 F 79 16 172/97 99 04/21/18 07:45 04/21/18 07:45 04/21/18 07:45 04/21/18 07:45 04/21/18 07:45 General appearance: Present: no acute distress, well-nourished - EENT Eyes: Present: PERRL ENT: hearing intact, clear oral mucosa - Neck Neck: Present: supple, normal ROM - Respiratory Respiratory effort: normal Respiratory: bilateral: CTA - Cardiovascular Heart Sounds: Present: S1 & S2. Absent: rub, click - Extremities Extremities: pulses symmetrical, No edema Peripheral Pulses: within normal limits - Abdominal General gastrointestinal: Present: soft, non-tender, non-distended, normal bowel sounds Female genitourinary: Present: normal - Integumentary Integumentary: Present: clear, warm, dry - Musculoskeletal Musculoskeletal: gait normal, strength equal bilaterally - Psychiatric Psychiatric: appropriate mood/affect, intact judgment & insight - Neurologic Neurologic: CNII-XII intact, moves all extremities Plan Activity: fall precautions Weight Bearing Status: Non-Weight Bearing Diet: low cholesterol, low salt Follow up with: PRIMARY CARE, [Primary Care Provider] - 3-5 Days Prescriptions: amLODIPine [Norvasc] 10 mg PO QDAY #30 tablet Chlorthalidone [Thalitone] 25 mg PO QDAY #30 tablet Hydrochlorothiazide [HCTZ] 25 mg PO QDAY #30 tablet Insulin Glargine [Lantus VIAL] 16 units SUB-Q QHS #20 units Lisinopril [Zestril TAB] 40 mg PO DAILY #30 tablet Lispro Insulin [Humalog] 6 unit SUB-Q ACHS #300 units Metoprolol [Lopressor TAB] 100 mg PO DAILY #30 tablet Metoprolol [Lopressor TAB] 100 mg PO BID #60 tablet Pregabalin [Lyrica] 75 mg PO BID #60 capsule Spironolactone [Aldactone] 50 mg PO DAILY #30 tablet
== END 2018-04-21 13:10 | disposition home or self-care (01) | DRG 291 ==
LOC: ED 12:14 → 4A 17:41
PROVIDERS: ADMIT Internal Medicine; ATTEND Family Medicine
DX: I11.0 Hypertensive heart disease with heart failure (principal); E43 Unspecified severe protein-calorie malnutrition; I24.9 Acute ischemic heart disease, unspecified; Z68.1 Body mass index [BMI] 19.9 or less, adult; I50.31 Acute diastolic (congestive) heart failure; E11.9 Type 2 diabetes mellitus without complications; D64.9 Anemia, unspecified; Z79.4 Long term (current) use of insulin; R07.89 Other chest pain; F32.9 Major depressive disorder, single episode, unspecified; I16.0 Hypertensive urgency; F41.9 Anxiety disorder, unspecified; F17.200 Nicotine dependence, unspecified, uncomplicated; Z79.899 Other long term (current) drug therapy; Z91.14 Patient's other noncompliance with medication regimen; Z82.49 Family history of ischemic heart disease and other diseases of the circulatory system; Z83.3 Family history of diabetes mellitus; Z71.6 Tobacco abuse counseling; Z71.41 Alcohol abuse counseling and surveillance of alcoholic
CPT/HCPCS: 36415; 71045; 71275; 78452; 80048; 80053; 80061; 82962; 83036; 83880; 84484; 84703; 85025; 85379; 93005; 93010; 93017; 93306; 99406; A9502; J0360; J1815; J2270; J2405; J2785; Q9967

== ENCOUNTER 2020-03-03 06:04 | Day surgery (SDC) | payer MEDICARE ==
[~2020-03-03 06:04] MED LIST: LACTATED RINGERS 1,000 ML IV SCH; MIDAZOLAM 2 MG/2 ML INJ IV NR; ceFAZolin/STERILE WATER 2 GM/20 ML SYRINGE IV NR
--- NOTE | 2020-03-03 07:08 | Anesthesia Consultation ---
Anesthesia Consult and Med Hx Date of service: 03/03/20 - Airway Anesthetic Teeth Evaluation: Poor, Chipped ROM Head & Neck: Adequate Mental/Hyoid Distance: Adequate Mallampati Class: Class II Intubation Access Assessment: Good - Pulmonary Exam CTA: Yes - Cardiac Exam Cardiac Exam: RRR - Pre-Operative Health Status ASA Pre-Surgery Classification: ASA3 Proposed Anesthetic Plan: MAC - Pulmonary Hx Smoking: Yes (1 PPD X 20 YRS) Hx Asthma: No COPD: No Hx Pneumonia: No Hx Sleep Apnea: No (NOEMI PRE SCREEN LOW RISK) - Cardiovascular System Hx Hypertension: Yes (1999- NON COMPLIANT WITH MEDS) Hx Pacemaker: No Hx Internal Defibrillator: No Hx Peripheral Vascular Disease: Yes (LEONIE LEG STENTS, neuropathy) - Central Nervous System Hx Back Pain: Yes (NECK AND BACK PAIN) Hx Psychiatric Problems: Yes - Endocrine Hx End Stage Renal Disease: No Hx Insulin Dependent Diabetes: Yes (noncomplient with meds, admited with DKA) - Hematic Hx Anemia: Yes - Other Systems Hx Alcohol Use: Yes Hx Substance Use: Yes (DAILY MARIJUANA FOR PAIN CONTROL & APP[employer] STIMULANT) Hx Cancer: No
[2020-03-03] MEDS ORDERED: ONDANSETRON 4 MG/2 ML INJ IV PRN (07:09)
[2020-03-03] MEDS ORDERED: fentaNYL 100 MCG/2 ML INJ IV PRN (07:09)
--- NOTE | 2020-03-03 07:09 | Anesthesia Day of Surgery ---
Anesthesia Day of Surgery - Day of Surgery Patient Examined: Yes Patient H&P Reviewed: Yes Patient is NPO: Yes Beta Blockers: Yes
[2020-03-03 07:11] LABS: Hematocrit 38.5 % (30.3-42.9); Hemoglobin 12.9 gm/dl (10.1-14.3); Mean Corpuscular HGB Conc 34 % (30-34); Mean Corpuscular Volume 91 fl (79-97); Platelet Count 192 K/mm3 (140-440); Red Blood Count 4.22 M/mm3 (3.65-5.03); Red Cell Distribution Width 14.8 % (13.2-15.2)
[2020-03-03] MEDS ORDERED: SODIUM CHLORIDE 0.9% 100 ML ONE (07:16)
[2020-03-03] MEDS ORDERED: propofoL 200 MG/20 ML VIAL IV ONE (07:17)
[2020-03-03] MEDS ORDERED: LIDOCAINE (1%) 10 MG/1 ML VIAL 20 ML MDV ONE (07:20)
[2020-03-03] MEDS ORDERED: BACITRACIN ZINC OINT 28.4 GM TP ONE ×2 (07:20→08:54)
[2020-03-03] MEDS ORDERED: BUPIVACAINE-EPINEPHRINE/PF 0.25%-1:200,000 (30 ML) VIAL INFILTRATI ONE (07:20)
[2020-03-03 07:23] LABS: BUN/Creatinine Ratio 26; Blood Urea Nitrogen 26 mg/dL (7-17); Calcium 9.8 mg/dL (8.4-10.2); Hemolysis Index 13
[2020-03-03] MEDS ORDERED: ONDANSETRON 4 MG/2 ML INJ ONE (07:40)
[2020-03-03] MEDS ORDERED: fentaNYL 100 MCG/2 ML INJ ONE (07:41)
[2020-03-03] MEDS ORDERED: BUPIVACAINE/PF (0.5%) 5 MG/1 ML 30 ML VIAL INFILTRATI ONE ×2 (07:42→08:20)
[2020-03-03] MEDS ORDERED: NEOMY 40 MG/POLYMYXIN B 200,000 UNITS/ML (GU) AMPULE IR ONE ×2 (07:43→08:22)
[2020-03-03] MEDS ORDERED: LIDOCAINE (1%) 10 MG/1 ML VIAL 20 ML MDV INFILTRATI ONE (08:21)
[2020-03-03] MEDS ORDERED: SODIUM CHLORIDE 0.9% IRRIG SOLN 2000 ML IR ONE (08:21)
[2020-03-03] MEDS ORDERED: SODIUM CHLORIDE 0.9% IRR 1,500 ML BOTTLE IR ONE (08:54)
--- NOTE | 2020-03-03 09:35 | XRay Report ---
Left foot, 2 views INDICATION: Osteomyelitis, postop FINDINGS: There has been amputation of the fifth toe at the base of the metatarsal with the phalanges remaining in place. There is also been a dictation through the midportion of the first metatarsal. T he second, third and fourth toes remain intact. No bone destruction or periosteal reaction seen. No s ignificant postoperative abnormality. Signer Name: José Luis Ramirez MD Signed: 03/03/2020 9:31 AM Workstation Name: [id number]
[2020-03-03 09:57] VITALS: BP 150/88
--- NOTE | 2020-03-03 13:52 | Post Anesthesia Evaluation ---
- Post Anesthesia Evaluation Patient Participated: Yes Airway Patent: Yes Stable Respiratory Function: Yes Nausea/Vomiting: No Temp > 96.8F: Yes Pain Manageable: Yes Adequeate Hydration: Yes Anesthesia Complications: No
--- NOTE | 2020-03-04 10:39 | Operative Report ---
PREOPERATIVE DIAGNOSIS: Gangrene open wound, left first ray. POSTOPERATIVE DIAGNOSIS: Gangrene open wound, left first ray. SURGICAL PROCEDURE: Amputation of great toe with partial resection of first ray, left foot. ANESTHESIA: Local with monitored anesthesia care. TOURNIQUET: None. ESTIMATED BLOOD LOSS: Less than 20 mL. DESCRIPTION OF PROCEDURE: The patient was given 2 grams of Ancef prophylactically. The foot was then scrubbed, prepped and draped in the usual aseptic manner. At this time, the patient was placed in a supine position and after adequate IV sedation, 10 mL of a 1:1 mixture of 1% lidocaine plain was infiltrated into the affected site. At this time, attention was directed to a gangrenous partial stump of a left great toe what was an open wound with purulent drainage and discharge noted. At this time, a racket type incision was placed around the base of the hallux in which there was noted to be necrotic tissue noted. It was brown yellow in discoloration. At this time, with the use of a 10 blade, dissection was placed at the racket incision outline, was noted to be deep and no separation of the layers was thus performed. At this time, a towel clamp was used to approximate the base of the hallux and was held while dissection carried proximally. At this time, after adequate dissection, the use of a sagittal saw was used to cut the distal 2/3 of the first ray to good healthy bone in a distal proximal to plantar lateral direction. Let it be noted the area was contoured with a rotating football bur without incident. At this time, the sesamoid apparatus was thus removed without incident and all non-vital tissues were removed. At this time, deep closure was delayed until cultures were performed. After adequate cultures, aerobic, anaerobic and fungal cultures were performed. A gentamicin pulse lavage was performed at the affected area and all tissues were removed without incident. At this time, deep closure was performed with 3-0 Vicryl followed by 4-0 Vicryl and subcutaneous superficial stitches were performed with 3-0 Prolene and 4-0 Prolene. The patient tolerated the procedure and anesthesia well and will be transferred to recovery room with both written and oral postoperative instructions. The patient will be discharged home with a postop shoe after wrapping the area with bacitracin ointment, Adaptic and sterile compressive dressing consisting of Coban. JOB# [id number] RUDI/MACY
== END 2020-03-03 06:05 | disposition home or self-care (01) ==
LOC: OR 06:04
PROVIDERS: ATTEND Podiatrist Foot & Ankle Surgery
DX: I96 Gangrene, not elsewhere classified (principal); E11.52 Type 2 diabetes mellitus with diabetic peripheral angiopathy with gangrene; E11.621 Type 2 diabetes mellitus with foot ulcer; E11.69 Type 2 diabetes mellitus with other specified complication; M86.8X7 Other osteomyelitis, ankle and foot; D50.0 Iron deficiency anemia secondary to blood loss (chronic); I11.0 Hypertensive heart disease with heart failure; I50.9 Heart failure, unspecified; E11.42 Type 2 diabetes mellitus with diabetic polyneuropathy; G62.9 Polyneuropathy, unspecified; F17.210 Nicotine dependence, cigarettes, uncomplicated; E78.00 Pure hypercholesterolemia, unspecified; K21.9 Gastro-esophageal reflux disease without esophagitis; F32.9 Major depressive disorder, single episode, unspecified; F41.9 Anxiety disorder, unspecified; Z72.89 Other problems related to lifestyle; Z87.440 Personal history of urinary (tract) infections; Z79.899 Other long term (current) drug therapy; Z79.4 Long term (current) use of insulin; Z86.718 Personal history of other venous thrombosis and embolism; Z98.890 Other specified postprocedural states
CPT/HCPCS: 28810; 36415; 73620; 80048; 82962; 85027; 87075; 87116; 88305; 88311; A4217; J0690; J2405; J2704; J3010; J7120; 87076; 87186

== ENCOUNTER 2020-07-10 10:41 | Emergency (ER) | payer MEDICARE ==
[2020-07-10 11:20] VITALS: BP 164/99
[2020-07-10] MEDS ORDERED: IBUPROFEN 600 MG TAB PO ONE (13:02)
[2020-07-10] MEDS ORDERED: KETOROLAC 30 MG/1 ML INJ IM ONE (14:07)
--- NOTE | 2020-07-10 14:12 | Emergency Department Report ---
- General Chief complaint: Extremity Injury, Lower Stated complaint: RT TOE DRAINAGE Time Seen by Provider: 07/10/20 13:02 Source: patient Mode of arrival: Ambulatory Limitations: No Limitations - History of Present Illness Initial comments: The patient was evaluated in the emergency department for symptoms described in the history of present illness. He/she was evaluated in the context of the global COVID-19 pandemic, which necessitated consideration that the patient might be at risk for infection with the virus that causes COVID-19. Institutional protocols and algorithms that pertain to the evaluation of patients at risk for COVID-19 are in a state of rapid change based on information released by regulatory bodies including the CDC and federal and state organizations. These policies and algorithms were followed during the patient's care in the emergency department. Please note that these policies, procedures and recommendations changed on a rapid basis. 49-year old -Congolese female presents to the emergency room complaining of right toe drainage and pain for about 3 to 4 days. Patient states that she had taken a picture of her wound and sent to to her repairer [employer] Dr. Alexsandra Gallegos. He recommend patient to follow-up in the emergency room. Patient does report she has an appointment with him on Sunday. Patient reports excruciating pain but has not taken anything for it. 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 Which was done in November 2019. Patient denies any fever or chills no nausea no vomiting. MD complaint: abscess/boil Onset/Timin -: days(s) Tetanus Up to Date: yes Location: R foot Severity: severe Severity scale (0 -10): 8 Quality: stabbing, sharp Consistency: constant Improves with: none Worsens with: palpation, movement Context: none Associated symptoms: denies other symptoms Treatments Prior to Arrival: none - Related Data Home Medications Medication Instructions Recorded Confirmed Last Taken ALPRAZolam [Xanax TAB] 0.5 mg PO BID 03/02/20 03/03/20 03/02/20 20:00 Clopidogrel [Plavix] 75 mg PO QDAY 03/02/20 03/02/20 03/01/20 Cyproheptadine HCl 2 mg PO BID 03/02/20 03/03/20 03/02/20 17:00 Insulin Detemir [Levemir VIAL] 16 unit SQ QHS 03/02/20 03/03/20 03/02/20 20:00 Insulin NPH Hum/Reg Insulin Hm 1 unit SQ TID 03/02/20 03/02/20 Unknown [Humulin 70-30 Vial] Losartan [Cozaar] 50 mg PO BID 03/02/20 03/03/20 03/03/20 05:00 PARoxetine [Paxil] 10 mg PO DAILY 03/02/20 03/03/20 03/02/20 09:00 Previous Rx's Medication Instructions Recorded Last Taken Type Ferrous Sulfate [Feosol 325 MG tab] 325 mg PO BID #60 tablet 12/27/16 03/02/20 09:00 Rx Chlorthalidone [Thalitone] 25 mg PO QDAY #30 tablet 04/21/18 03/03/20 05:00 Rx Metoprolol [Lopressor TAB] 100 mg PO DAILY #30 tablet 04/21/18 03/03/20 05:00 Rx Pregabalin 75 mg PO BID #60 capsule 04/21/18 03/02/20 09:00 Rx amLODIPine 10 mg PO QDAY #30 tablet 04/21/18 03/02/20 20:00 Rx cephALEXin [Keflex] 500 mg PO Q12HR 10 Days #20 cap 07/10/20 Unknown Rx traMADoL [Ultram 50 MG tab] 50 mg PO Q6HR PRN #12 tablet 07/10/20 Unknown Rx Allergies Allergy/AdvReac Type Severity Reaction Status Date / Time No Known Allergies Allergy Verified 04/19/18 13:56 Abscess Boil HPI - HPI Chief Complaint: Extremity Injury, Lower Stated Complaint: RT TOE DRAINAGE Time Seen by Provider: 07/10/20 13:02 Home Medications: Home Medications Medication Instructions Recorded Confirmed Last Taken ALPRAZolam [Xanax TAB] 0.5 mg PO BID 03/02/20 03/03/20 03/02/20 20:00 Clopidogrel [Plavix] 75 mg PO QDAY 03/02/20 03/02/20 03/01/20 Cyproheptadine HCl 2 mg PO BID 03/02/20 03/03/20 03/02/20 17:00 Insulin Detemir [Levemir VIAL] 16 unit SQ QHS 03/02/20 03/03/20 03/02/20 20:00 Insulin NPH Hum/Reg Insulin Hm 1 unit SQ TID 03/02/20 03/02/20 Unknown [Humulin 70-30 Vial] Losartan [Cozaar] 50 mg PO BID 03/02/20 03/03/20 03/03/20 05:00 PARoxetine [Paxil] 10 mg PO DAILY 03/02/20 03/03/20 03/02/20 09:00 Previous Rx's Medication Instructions Recorded Last Taken Type Ferrous Sulfate [Feosol 325 MG tab] 325 mg PO BID #60 tablet 12/27/16 03/02/20 09:00 Rx Chlorthalidone [Thalitone] 25 mg PO QDAY #30 tablet 04/21/18 03/03/20 05:00 Rx Metoprolol [Lopressor TAB] 100 mg PO DAILY #30 tablet 04/21/18 03/03/20 05:00 Rx Pregabalin 75 mg PO BID #60 capsule 04/21/18 03/02/20 09:00 Rx amLODIPine 10 mg PO QDAY #30 tablet 04/21/18 03/02/20 20:00 Rx cephALEXin [Keflex] 500 mg PO Q12HR 10 Days #20 cap 07/10/20 Unknown Rx traMADoL [Ultram 50 MG tab] 50 mg PO Q6HR PRN #12 tablet 07/10/20 Unknown Rx Allergies/Adverse Reactions: Allergies Allergy/AdvReac Type Severity Reaction Status Date / Time No Known Allergies Allergy Verified 04/19/18 13:56 ED Review of Systems ROS: Stated complaint: RT TOE DRAINAGE Other details as noted in HPI Comment: All other systems reviewed and negative ED Past Medical Hx - Past Medical History Previous Medical History?: Yes Hx Hypertension: Yes (1999- NON COMPLIANT WITH MEDS) Hx Congestive Heart Failure: No Hx Diabetes: Yes Hx Deep Vein Thrombosis: Yes ((?)- LEGS - PT UNSURE , ON PLAVIX) Hx GERD: Yes Hx Psychiatric Treatment: Yes (depression, axiety) Hx Asthma: No Hx COPD: No Hx HIV: No Additional medical history: Iron deficiency anemia, osteomyelitis left foot - Surgical History Past Surgical History?: Yes Hx Pacemaker: No Hx Internal Defibrillator: No Additional Surgical History: , left foot surgery - Social History Smoking Status: Current Every Day Smoker Substance Use Type: None - Medications Home Medications: Home Medications Medication Instructions Recorded Confirmed Last Taken Type Ferrous Sulfate [Feosol 325 MG tab] 325 mg PO BID #60 tablet 12/27/16 03/03/20 03/02/20 09:00 Rx Chlorthalidone [Thalitone] 25 mg PO QDAY #30 tablet 04/21/18 03/03/20 03/03/20 05:00 Rx Metoprolol [Lopressor TAB] 100 mg PO DAILY #30 tablet 04/21/18 03/03/20 03/03/20 05:00 Rx Pregabalin 75 mg PO BID #60 capsule 04/21/18 03/03/20 03/02/20 09:00 Rx amLODIPine 10 mg PO QDAY #30 tablet 04/21/18 03/03/20 03/02/20 20:00 Rx ALPRAZolam [Xanax TAB] 0.5 mg PO BID 03/02/20 03/03/20 03/02/20 20:00 History Clopidogrel [Plavix] 75 mg PO QDAY 03/02/20 03/02/20 03/01/20 History Cyproheptadine HCl 2 mg PO BID 03/02/20 03/03/20 03/02/20 17:00 History Insulin Detemir [Levemir VIAL] 16 unit SQ QHS 03/02/20 03/03/20 03/02/20 20:00 History Insulin NPH Hum/Reg Insulin Hm 1 unit SQ TID 03/02/20 03/02/20 Unknown History [Humulin 70-30 Vial] Losartan [Cozaar] 50 mg PO BID 03/02/20 03/03/20 03/03/20 05:00 History PARoxetine [Paxil] 10 mg PO DAILY 03/02/20 03/03/20 03/02/20 09:00 History cephALEXin [Keflex] 500 mg PO Q12HR 10 Days #20 cap 07/10/20 Unknown Rx traMADoL [Ultram 50 MG tab] 50 mg PO Q6HR PRN #12 tablet 07/10/20 Unknown Rx ED Physical Exam - General Limitations: No Limitations General appearance: alert, in no apparent distress, cachectic - Head Head exam: Present: atraumatic, normocephalic - Eye Eye exam: Present: normal appearance - ENT ENT exam: Present: mucous membranes moist - Neck Neck exam: Present: normal inspection, full ROM - Respiratory Respiratory exam: Absent: accessory muscle use - Expanded Lower Extremity Exam Right Hip exam: Present: full ROM Upper Leg exam: Present: normal inspection Knee exam: Present: normal inspection Lower Leg exam: Present: normal inspection Foot/Toe exam: Present: full ROM, tenderness, abrasion (Patient has skin appearing to slough off from the bottom of her foot that is draining clearish tinted fluid. Patient toes have redness and tender.), erythema Neuro vascular tendon exam: Present: no vascular compromise Gait: Positive: observed and limited by pain - Back Exam Back exam: Present: normal inspection, full ROM - Neurological Exam Neurological exam: Present: alert, oriented X3 - Psychiatric Psychiatric exam: Present: depressed, anxious ED Course Vital Signs 07/10/20 11:18 Temperature 99.2 F Pulse Rate 112 H Respiratory 18 Rate Blood Pressure 164/99 [Right] O2 Sat by Pulse 98 Oximetry ED Medical Decision Making - Radiology Data Radiology results: report reviewed Print Report Referring Physician:DIOMEDES LARSONPatient Name:FRANSISCO PIPERESPatient ID:[id number] of :[id number]:FemaleAccession:[id number] Date:[id number] Status:Finalized Findings [facility] [address] [place] [address] XRay Report Signed Patient: FRANSISCO MARROQUIN MR#: [id number] : 1970 Acct:[id number] Age/Sex: 49 / F ADM Date: 07/10/20 Loc: ED Attending Dr: Ordering Physician: MARU CHEN Date of Service: 07/10/20 Procedure(s): XR foot 3+V RT Accession Number(s): [id number] cc: MARU CHEN Fluoro Time In Minutes: RIGHT FOOT 3 VIEWS INDICATION / CLINICAL INFORMATION: Wound to right foot. COMPARISON: None available. FINDINGS: No fracture or other acute abnormality. Signer Name: Alexsandra Morejon MD Signed: 07/10/2020 2:09 PM Workstation Name: [id number] Transcribed By: TM Dictated By: Alexsandra Morejon MD Electronically Authenticated By: Alexsandra Morejon MD Signed Date/Time: 07/10/201408 DD/ 07 TD/TT: - Medical Decision Making 49-year old -Congolese female presents to the emergency room complaining of right toe drainage and pain for about 3 to 4 days. Patient states that she had taken a picture of her wound and sent to to her repairer [employer] Dr. Alexsandra Cruz son. He recommend patient to follow-up in the emergency room. Patient does report she has an appointment with him on Sunday. Patient reports excruciating pain but has not taken anything for it. 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 Which was done in November 2019. Patient denies any fever or chills no nausea no vomiting. X-ray of right foot has been ordered to rule out osteomyelitis or gas gangrene. Ibuprofen was ordered patient declined stating she she is nervous to take it on an empty stomach. Therefore Toradol 30 mg IM has been ordered for pain management. X-rays negative for any acute abnormalities. I have also discussed with product support rep that she needs wound care with wound cleanser 4 x 4 gauze and fluffy Kerlix wrap. Patient can be placed in a surgical boot. Patient will be discharged home on Keflex in tramadol for pain management. Patient is to keep her appointment with Dr. Alexsandra Gallegos for Sunday. Critical care attestation.: If time is entered above; I have spent that time in minutes in the direct care of this critically ill patient, excluding procedure time. ED Disposition Clinical Impression: Diabetic foot ulcer Disposition: DC- TO HOME OR SELFCARE Is pt being admited?: No Does the pt Need Aspirin: No Condition: Stable Instructions: Diabetes Mellitus Type 2 in Adults (ED) Additional Instructions: Please complete antibiotics as prescribed. Pain medication as needed. It is very important for you to keep your appointment with Dr. Alexsandra Gallegos rep[employer]r [employer]. Prescriptions: cephALEXin [Keflex] 500 mg PO Q12HR 10 Days #20 cap traMADoL [Ultram 50 MG tab] 50 mg PO Q6HR PRN #12 tablet PRN Reason: Pain Referrals: ALEXSANDRA GALLEGOS DPM [Staff Physician] - 3-5 Days Forms: Work/School Release Form(ED)
== END 2020-07-10 15:09 | disposition home or self-care (01) ==
LOC: ED 10:41
DX: E11.621 Type 2 diabetes mellitus with foot ulcer (principal); I10 Essential (primary) hypertension; K21.9 Gastro-esophageal reflux disease without esophagitis; F32.89 Other specified depressive episodes; F41.9 Anxiety disorder, unspecified; F17.200 Nicotine dependence, unspecified, uncomplicated; Z98.890 Other specified postprocedural states; Z79.899 Other long term (current) drug therapy; Z79.4 Long term (current) use of insulin

== ENCOUNTER 2022-01-02 12:33 | Emergency (ER) | payer MEDICARE ==
[2022-01-02 13:33] VITALS: BP 189/106
[2022-01-02] MEDS ORDERED: HYDROcodone/ACETAMINOPHEN 5-325 MG TAB PO ONE (16:33)
--- NOTE | 2022-01-02 17:53 | Emergency Department Report ---
ED Fall HPI - General Chief Complaint: Fall Stated Complaint: FELL/NECK/BACK/HEAD PAIN Time Seen by Provider: 01/02/22 16:18 Source: patient Mode of arrival: Wheelchair - History of Present Illness Initial Comments: This is a 51-year-old female wheelchair-bound due to right lower extremity amputation who presents to the ED complaining of neck and back of the head pain status post fall yesterday while at home. Patient states that she fell backwards on her wheelchair accidentally. Patient states has been having a lump on the back of her head and complaining of left-sided neck pain. Patient denies any loss of consciousness, bleeding, chest pain, shortness of breath or blurry vision. MD Complaint: fall - Related Data Previous Rx's Medication Instructions Recorded Last Taken Type Chlorthalidone [Thalitone] 25 mg PO QDAY #30 tablet 07/26/20 09/05/20 Rx Docusate Sodium [Colace] 100 mg PO BID PRN #30 capsule 07/26/20 09/05/20 Rx AtorvaSTATin [Lipitor] 40 mg PO QHS 30 Days #30 tablet 09/24/20 Unknown Rx Clopidogrel [Plavix] 75 mg PO QDAY #30 09/24/20 Unknown Rx Cyproheptadine [Periactin] 4 mg PO QHS #30 09/24/20 Unknown Rx Ferrous Sulfate [Feosol 325 MG tab] 325 mg PO QDAY #30 tablet 09/24/20 Unknown Rx Insulin Glargine [Lantus VIAL] 30 units SUB-Q QHS #5 pen 09/24/20 Unknown Rx Loratadine 10 mg PO QDAY #30 cap 09/24/20 Unknown Rx Metoprolol [Lopressor TAB] 100 mg PO BID 30 Days #60 tablet 09/24/20 Unknown Rx PARoxetine [Paxil] 10 mg PO DAILY #30 09/24/20 Unknown Rx PARoxetine [Paxil] 10 mg PO QDAY #30 tablet 09/24/20 Unknown Rx Pantoprazole [Protonix TAB] 40 mg PO QDAC #30 tablet 09/24/20 Unknown Rx Pregabalin 50 mg PO BID #60 capsule 09/24/20 Unknown Rx amLODIPine 10 mg PO DAILY #30 tablet 09/24/20 Unknown Rx amLODIPine 10 mg PO QDAY 30 Days #30 tablet 09/24/20 Unknown Rx levoFLOXacin [Levaquin TAB] 750 mg PO DAILY #7 tablet 09/24/20 Unknown Rx oxyCODONE /ACETAMINOPHEN [Percocet 1 tab PO Q6H PRN #20 tablet 09/24/20 Unknown Rx 5/325 mg] Butalb/Acetaminophen/Caffeine 1 cap PO Q8HR #10 cap 01/02/22 Unknown Rx [Fioricet 50-300-40 mg CAP] methOCARBAMOL [Robaxin TAB] 500 mg PO BID #30 tab 01/02/22 Unknown Rx Allergies Allergy/AdvReac Type Severity Reaction Status Date / Time heparin Allergy Unknown Verified 09/08/20 09:33 ED Review of Systems ROS: Stated complaint: FELL/NECK/BACK/HEAD PAIN Other details as noted in HPI Comment: All other systems reviewed and negative ED Past Medical Hx - Past Medical History Previous Medical History?: Yes Hx Hypertension: Yes (2000- NON COMPLIANT WITH MEDS) Hx Heart Attack/AMI: No Hx Congestive Heart Failure: No Hx Diabetes: Yes Hx Deep Vein Thrombosis: Yes ((?)- LEGS - PT UNSURE , ON PLAVIX) Hx GERD: Yes Hx Liver Disease: No Hx Renal Disease: No Hx Seizures: No Hx Psychiatric Treatment: Yes (depression, axiety) Hx Asthma: No Hx COPD: No Hx HIV: No Additional medical history: Iron deficiency anemia, osteomyelitis left foot - Surgical History Past Surgical History?: Yes Hx Pacemaker: No Hx Internal Defibrillator: No Additional Surgical History: , left foot surgery - Social History Smoking Status: Never Smoker Substance Use Type: None - Medications Home Medications: Home Medications Medication Instructions Recorded Confirmed Last Taken Type Chlorthalidone [Thalitone] 25 mg PO QDAY #30 tablet 07/26/20 09/06/20 09/05/20 Rx Docusate Sodium [Colace] 100 mg PO BID PRN #30 capsule 07/26/20 09/06/20 09/05/20 Rx AtorvaSTATin [Lipitor] 40 mg PO QHS 30 Days #30 tablet 09/24/20 Unknown Rx Clopidogrel [Plavix] 75 mg PO QDAY #30 09/24/20 Unknown Rx Cyproheptadine [Periactin] 4 mg PO QHS #30 09/24/20 Unknown Rx Ferrous Sulfate [Feosol 325 MG tab] 325 mg PO QDAY #30 tablet 09/24/20 Unknown Rx Insulin Glargine [Lantus VIAL] 30 units SUB-Q QHS #5 pen 09/24/20 Unknown Rx Loratadine 10 mg PO QDAY #30 cap 09/24/20 Unknown Rx Metoprolol [Lopressor TAB] 100 mg PO BID 30 Days #60 tablet 09/24/20 Unknown Rx PARoxetine [Paxil] 10 mg PO DAILY #30 09/24/20 Unknown Rx PARoxetine [Paxil] 10 mg PO QDAY #30 tablet 09/24/20 Unknown Rx Pantoprazole [Protonix TAB] 40 mg PO QDAC #30 tablet 09/24/20 Unknown Rx Pregabalin 50 mg PO BID #60 capsule 09/24/20 Unknown Rx amLODIPine 10 mg PO DAILY #30 tablet 09/24/20 Unknown Rx amLODIPine 10 mg PO QDAY 30 Days #30 tablet 09/24/20 Unknown Rx levoFLOXacin [Levaquin TAB] 750 mg PO DAILY #7 tablet 09/24/20 Unknown Rx oxyCODONE /ACETAMINOPHEN [Percocet 1 tab PO Q6H PRN #20 tablet 09/24/20 Unknown Rx 5/325 mg] Butalb/Acetaminophen/Caffeine 1 cap PO Q8HR #10 cap 01/02/22 Unknown Rx [Fioricet 50-300-40 mg CAP] methOCARBAMOL [Robaxin TAB] 500 mg PO BID #30 tab 01/02/22 Unknown Rx ED Physical Exam - General Limitations: No Limitations General appearance: alert, in no apparent distress - Head Head exam: Present: atraumatic, normocephalic, other (Mild nontender 1 to 2 cm lump on the back of the head) - Eye Eye exam: Present: normal appearance, PERRL - ENT ENT exam: Present: mucous membranes moist - Neck Neck exam: Present: normal inspection - Respiratory Respiratory exam: Present: normal lung sounds bilaterally. Absent: respiratory distress - Cardiovascular Cardiovascular Exam: Present: regular rate, normal rhythm. Absent: systolic murmur, diastolic murmur, rubs, gallop - GI/Abdominal GI/Abdominal exam: Present: soft, normal bowel sounds - Extremities Exam Extremities exam: Present: normal inspection, full ROM. Absent: tenderness - Back Exam Back exam: Present: normal inspection, full ROM. Absent: tenderness, CVA tenderness (R), CVA tenderness (L) - Neurological Exam Neurological exam: Present: alert, oriented X3 - Psychiatric Psychiatric exam: Present: normal affect, normal mood - Skin Skin exam: Present: warm, dry, intact, normal color. Absent: rash ED Course Vital Signs 01/02/22 01/02/22 01/02/22 13:30 17:06 18:06 Temperature 98.7 F Pulse Rate 106 H Respiratory 20 16 Rate Blood Pressure 189/106 [Right] O2 Sat by Pulse 100 100 Oximetry ED Medical Decision Making - Radiology Data Radiology results: report reviewed CT head/brain wo con INDICATION: pain/lump on head s/p fall. TECHNIQUE: Routine CT head. All CT scans at this location are performed using CT dose reduction for ALARA by means of automated exposure control. COMPARISON: None. FINDINGS: Posterior scalp hematoma. Intracranial: Rose-white matter differentiation is maintained. No intracranial hemorrhage. No extra axial collection. No hydrocephalus. No herniation. Sinuses: Paranasal sinuses and mastoid air cells are essentially clear. Orbits: Globes are intact. Calvarium: No acute fracture. IMPRESSION: 1. Posterior scalp hematoma without underlying calvarial fracture or acute intracranial abnormality. Signer Name: Eleazar Gauthier MD Signed: 01/02/2022 6:19 PM Workstation Name: [id number] Transcribed By: CATALINO Dictated By: Eleazar Gauthier MD Electronically Authenticated By: Eleazar Gauthier MD Signed Date/Time: 01/02/221818 - Medical Decision Making 51-year-old female presents to the ED status post fall. Patient received pain medication in ED. CT scan shows no acute findings. Discussed all findings with the patient. See report above CT head and CT cervical spine negative Patient is in no acute distress or shows any neurodeficit. Discussed follow-up with primary care physician within 2 to 3 days. Critical care attestation.: If time is entered above; I have spent that time in minutes in the direct care of this critically ill patient, excluding procedure time. ED Disposition Clinical Impression: Contusion of scalp, Hematoma of scalp, Myalgia, Fall Disposition: HOME / SELF CARE / HOMELESS Is pt being admited?: No Does the pt Need Aspirin: No Condition: Stable Instructions: How to Use Cold Therapy, [id number], Facial or Scalp Contusion, Contusion, [id number], Musculoskeletal Pain Additional Instructions: Make sure to follow up with the primary care physician as discussed. Take all your medications as you've been prescribed. If you have any worsening symptoms or develop new symptoms please return to ED immediately. Prescriptions: Butalb/Acetaminophen/Caffeine [Fioricet 50-300-40 mg CAP] 1 cap PO Q8HR #10 cap methOCARBAMOL [Robaxin TAB] 500 mg PO BID #30 tab Referrals: ELADIA DENG MD [Primary Care Provider] - 3-5 Days Forms: Accompanied Note, Work/School Release Form(ED) Time of Disposition: 19:16
--- NOTE | 2022-01-02 18:23 | Cat Scan Report ---
CT head/brain wo con INDICATION: pain/lump on head s/p fall. TECHNIQUE: Routine CT head. All CT scans at this location are performed using CT dose reduction for A ROBSON by means of automated exposure control. COMPARISON: None. FINDINGS: Posterior scalp hematoma. Intracranial: Rose-white matter differentiation is maintained. No intracranial hemorrhage. No extra a xial collection. No hydrocephalus. No herniation. Sinuses: Paranasal sinuses and mastoid air cells are essentially clear. Orbits: Globes are intact. Calvarium: No acute fracture. IMPRESSION: 1. Posterior scalp hematoma without underlying calvarial fracture or acute intracranial abnormality. Signer Name: Eleazar Gauthier MD Signed: 01/02/2022 6:19 PM Workstation Name: [id number]
--- NOTE | 2022-01-02 18:28 | Cat Scan Report ---
CT cervical spine wo con INDICATION: neck pain. TECHNIQUE: Axial CT images of the cervical spine were obtained. Sagittal and coronal reformatted images were pro duced. All CT scans at this location are performed using CT dose reduction for ALARA by means of auto mated exposure control. COMPARISON: None available. FINDINGS: ALIGNMENT: Normal alignment. VERTEBRAE: No fracture. Vertebral body heights are preserved. C1 and C2 are congruent. SPONDYLOSIS: Small partially calcified central C2-C3 and central C3-C4 protrusions and a small partia lly calcified C5-6 extrusion with slight caudal extension. These findings result in mild spinal canal stenosis.. SOFT TISSUES: No significant soft tissue abnormality. ADDITIONAL FINDINGS: No significant additional findings. IMPRESSION: 1. No fracture of the cervical spine. 2. Multilevel small herniations as described below. Signer Name: Eleazar Gauthier MD Signed: 01/02/2022 6:24 PM Workstation Name: [id number]
== END 2022-01-02 19:26 | disposition home or self-care (01) ==
LOC: ED 12:33
DX: S00.03XA Contusion of scalp, initial encounter (principal); M79.10 Myalgia, unspecified site; I10 Essential (primary) hypertension; E11.9 Type 2 diabetes mellitus without complications; K21.9 Gastro-esophageal reflux disease without esophagitis; Z86.718 Personal history of other venous thrombosis and embolism; Z98.890 Other specified postprocedural states; Z79.899 Other long term (current) drug therapy; Z91.09 Other allergy status, other than to drugs and biological substances; W19.XXXA Unspecified fall, initial encounter; Y93.89 Activity, other specified; Y92.89 Other specified places as the place of occurrence of the external cause; Y99.8 Other external cause status
CPT/HCPCS: 70450; 72125; 99283